=== PATIENT | female | born 1955 | race Caucasian/White ===

== ENCOUNTER 2017-01-25 18:29 | Emergency (ER) | payer BC ==
[2017-01-26 01:31] VITALS: BP 100/59
== END 2017-01-26 01:31 | disposition home or self-care (01) ==
LOC: ED 18:29 → DU 21:46 → ED 21:46
DX: S32.019A Unspecified fracture of first lumbar vertebra, initial encounter for closed fracture (principal); W17.89XA Other fall from one level to another, initial encounter; Y93.89 Activity, other specified; Y99.8 Other external cause status; Y92.89 Other specified places as the place of occurrence of the external cause
CPT/HCPCS: 83880; 84439; J3010; J7030